=== PATIENT | female | born 1960 | race Two or more races ===

== ENCOUNTER 2025-05-05 14:25 | Inpatient (IN) | payer MEDICARE, MEDICAID ==
[~2025-05-05] VITALS: Ht 157.5 cm; Wt 70.2 kg
--- NOTE | 2025-05-05 15:12 | ED.PDOC ---
GI ASSESSMENT HPI Comments This is a 65 year old female with past medical history of hypertension, hyperlipidemia, diabetes, unknown liver problem, presenting to the ED with chief complaint of abdominal pain. Patient reports that she has been experiencing RUQ abdominal burning with associated dizziness, nausea, and vomiting since this morning, radiating to the left upper quadrant. Patient's daughter relays that the patient has been seeing her PCP for a possible liver problem she has recently, however is unsure what she was diagnosed with. She has not tried anything for. She states nothing makes her symptoms better or worse. Patient denies any diarrhea, chest pain, SOB, fever, chills, or hematemesis. 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 Hx Family History Family History: Reviewed,noncontributory to illness Social History Smoker: Non-Smoker Alcohol: Denies ETOH Use Drugs: Denies Drug Use Lives In: Home Constitutional: denies: chills, diaphoresis, fatigue, fever, malaise, sweats, weakness, others EENTM: denies: blurred vision, double vision, ear bleeding, ear discharge, ear drainage, ear pain, ear ringing, eye pain, eye redness, hearing loss, mouth pain, mouth swelling, nasal discharge, nose bleeding, nose congestion, nose pain, photophobia, tearing, throat pain, throat swelling, voice changes, others Respiratory: denies: cough, hemoptysis, orthopnea, SOB at rest, shortness of breath, SOB with excertion, stridor, wheezing, others Cardiovascular: denies: chest pain, dizzy spells, diaphoresis, Dyspnea on exertion, edema, irregular heart beat, left arm pain, lightheadedness, palpitations, PND, syncope, others Gastrointestinal: reports: abdominal pain, nausea, vomiting; denies: abdomen distended, blood streaked bowels, constipated, diarrhea, dysphagia, difficulty swallowing, hematemesis, melena, poor appetite, poor fluid intake, rectal bleeding, rectal pain, others Genitourinary: denies: abnormal vagina bleeding, burning, dyspareunia, dysuria, flank pain, frequency, hematuria, incontinence, pain, , vagina discharge, urgency, others Neurological: reports: dizziness; denies: fainting, headache, left sided numbness, left sided weakness, numbness, paresthesia, pre-existing deficit, right sided numbness, right sided weakness, seizure, speech problems, tingling, tremors, weakness, others Musculoskeletal: denies: back pain, gout, joint pain, joint swelling, muscle pain, muscle stiffness, neck pain, others Integumetry: denies: bruises, change in color, change in hair/nails, dryness, laceration, lesions, lumps, rash, wounds, others Allergic/Immunocompromised: denies: Difficulty Healing, Frequent Infections, Hives, Itching, others Hematologic/Lymphatic: denies: anemia, blood clots, easy bleeding, easy bruising, swollen glands, others Endocrine: denies: excessive hunger, excessive sweating, excessive thirst, excessive urination, flushing, intolerance to cold, intolerance to heat, unexplained weight gain, unexplained weight loss, others Psychiatric: denies: anxiety, bipolar disorder, depression, hopeless, panic disorder, schizophrenia, sleepless, suicidal, others All Other Systems: Reviewed and Negative Physical Exam General Appearance: No Apparent Distress, Normal HEENT: Normal ENT Inspection, Pharynx Normal, TMs Normal Neck: Full Range of Motion, Non-Tender, Normal, Normal Inspection Respiratory: Chest Non-Tender, Lungs Clear, No Accessory Muscle Use, No Respiratory Distress, Normal Breath Sounds Cardiovascular: No Edema, No JVD, No Murmur, No Gallop, Normal Peripheral Pulses, Regular Rate/Rhythm Breast Exam: Deferred Gastrointestinal: No Organomegaly, Non Tender, No Pulsatile Mass, Normal Bowel Sounds, Soft Genitalia: Deferred Pelvic: Deferred Rectal: Deferred Extremities: No calf tenderness, Normal capillary refill, Normal inspection, Normal range of motion, Non-tender, No pedal edema Musculoskeletal : Apperance: Normal Neurologic: Alert, produce runner II-XII nml as Tested, No Motor Deficits, Normal Affect, Normal Mood, No Sensory Deficits Cerebellar Function: Normal Reflexes: Normal Skin: Dry, Normal Color, Warm Lymphatic: No Adenopathy Was a procedure done? Was a procedure done?: No GI differential Dx Differential Diagnosis: Angina/HI, Cholangitis, Cholecystitis, Constipation, Gastritis/PUD, Gastroenteritis, Hepatitis, Pancreatitis, UTI, Dehydration, Electrolyte Imbalance, Food Poisoning, Viral, Renal Failure, Stress Ulcer X-Ray, Labs, Meds, VS Vital Signs Date Time Temp Pulse Resp B/P (MAP) Pulse Ox O2 Delivery O2 Flow Rate FiO2 05/05/25 17:25 56 22 99 Room Air* 0 21 05/05/25 16:54 97.8 47 16 101/51 (68) 98 97.8 05/05/25 16:05 98.2 60 17 103/54 (70) 99 98.2 05/05/25 16:05 60 17 99 Room Air 05/05/25 14:33 54 05/05/25 14:28 97.8 59 18 110/60 98 97.8 Lab Test 05/05/25 18:01 05/05/25 15:57 05/05/25 15:00 05/05/25 14:43 Range/Units Prothrombin Time 11.6 9.3-11.8 sec Prothrombin Time INR 1.11 0.9-1.15 Activated Partial Thromboplast Time 27.5 24.5-34.5 SEC Troponin I High Sensitivity 3 L < 3 L 3 L </=34 ng/L White Blood Count 7.1 4.4-10.8 10^3/uL Red Blood Count 4.39 4.0-5.20 10^6/uL Hemoglobin 13.1 12.2-16.2 g/dL Hematocrit 39.4 36.0-46.0 % Mean Corpuscular Volume 89.9 80.0-100.0 fL Mean Corpuscular Hemoglobin 29.8 28.0-32.0 pg Mean Corpuscular Hemoglobin Concent 33.2 32.0-36.0 g/dL Red Cell Distribution Width 14.5 H 11.8-14.3 % Platelet Count 106 L 140-450 10^3/uL Mean Platelet Volume 10.1 6.9-10.8 fL Neutrophils (%) (Auto) 68.9 37.0-80.0 % Lymphocytes (%) (Auto) 21.4 10.0-50.0 % Monocytes (%) (Auto) 6.0 0.0-12.0 % Eosinophils (%) (Auto) 3.1 0.0-7.0 % Basophils (%) (Auto) 0.6 0.0-2.0 % Neutrophils # (Auto) 4.9 1.6-8.6 10 ^3/uL Lymphocytes # (Auto) 1.5 0.4-5.4 10 ^3/uL Monocytes # (Auto) 0.4 0-1.3 10 ^3/uL Eosinophils # (Auto) 0.2 0-0.8 10 ^3/uL Basophils # (Auto) 0 0-0.2 10 ^3/uL Nucleated Red Blood Cells 0.2 % Platelet Estimate Decreased Clumped Platelets Few Sodium Level 140 136-145 mmol/L Potassium Level 4.0 3.5-5.1 mmol/L Chloride Level 107 98-107 mmol/L Carbon Dioxide Level 22 20-31 mmol/L Anion Gap 11 5-15 Blood Urea Nitrogen 22 9-23 mg/dL Creatinine 1.01 0.550-1.02 mg/dL Glomerular Filtration Rate Calc 61 >90 mL/min BUN/Creatinine Ratio 21.8 H 10.0-20.0 Serum Glucose 206 H 74-106 mg/dL Calcium Level 9.3 8.7-10.4 mg/dL Total Bilirubin 0.9 0.2-1.0 mg/dL Aspartate Amino Transferase (AST) 101 H 13-40 U/L Alanine Aminotransferase (ALT) 78 H 7-40 U/L Alkaline Phosphatase 141 H 46-116 U/L B-Type Natriuretic Peptide 74.15 0-100 pg/mL Total Protein 7.0 5.7-8.2 g/dL Albumin 4.2 3.2-4.8 g/dL Triglycerides Level 90 < 150 mg/dL Cholesterol Level 151 < 200 mg/dL LDL Cholesterol 57 < 100 mg/dL HDL Cholesterol 74 H 40-59 mg/dL Lipase > 3500 H 12-53 U/L POC Glucose 192 H 70-106 mg/dl Current Medications Medications (Trade) Dose Ordered Sig/Randy Route Start Time Stop Time Status Last Admin Ondansetron HCl (Zofran Po) 4 mg ONCE ONCE PO 05/05/25 15:00 05/05/25 15:01 DC 05/05/25 16:20 Sodium Chloride 1,000 ml @ 1,000 mls/hr Q1H ONCE IV 05/05/25 17:30 05/05/25 18:29 DC 05/05/25 17:24 X-Ray, Labs, Meds, VS Comment Patient presenting with right upper quadrant abdominal pain, with recently diagnosed liver problems. Vital signs stable exam notable for right upper quadrant tenderness. Lab work (CBC, BMP) to evaluate for evidence of severe anemia, electrolyte abnormality including hypokalemia, hyperkalemia, hypernatremia, hyponatremia, hyperglycemia, hypoglycemia, etc. EKG and troponin to evaluate for evidence of arrhythmia, ACS, AMI Right upper quadrant ultrasound to evaluate for biliary colic or cholecystitis Patient declining analgesia at this time Antiemetics Re-evaluation Social determinant surveillance affecting care: Social determinants of health that will affect the patient's care: Poor health literacy (additional time provided an explanation) Poor access to outpatient care/followup (provided outpatient resources) Time of 1ST Reevaluation: 16:09 Reevaluation 1ST: Unchanged Patient Education/Counseling: Diagnosis, Treatment Family Education/Counseling: Diagnosis, Treatment SEPSIS Sepsis Screen Date sepsis recognized/suspect: May 05, 2025 Time Sepsis recognized/suspect: 1428 Recent Procedure: No On Antibiotic Therapy: No Respiratory Rate >20: No Heart Rate >90: No Temp<36 C (96.8 F) or >38.3 C: No SBP <90 or MAP <65 mmHG: No New Acute Mental Status Change: No Is the patient on CPAP, BIPAP,: No Physician Orders Electrocardigram (05/05/25 14:47) Abdomen Limited (05/05/25 14:56) Vital Signs Date Time Temp Pulse Resp B/P (MAP) Pulse Ox O2 Delivery O2 Flow Rate FiO2 05/05/25 17:25 56 22 99 Room Air* 0 21 05/05/25 16:54 97.8 47 16 101/51 (68) 98 97.8 05/05/25 16:05 98.2 60 17 103/54 (70) 99 98.2 05/05/25 16:05 60 17 99 Room Air 05/05/25 14:33 54 05/05/25 14:28 97.8 59 18 110/60 98 97.8 Laboratory Tests Test 05/05/25 15:00 White Blood Count 7.1 10^3/uL (4.4-10.8) Medications Medications Dose Ordered Sig/Randy Route Start Time Stop Time Status Last Admin Dose Admin Ondansetron HCl 4 mg ONCE ONCE PO 05/05/25 15:00 05/05/25 15:01 DC 05/05/25 16:20 Sodium Chloride 1,000 ml @ 1,000 mls/hr Q1H ONCE IV 05/05/25 17:30 05/05/25 18:29 DC 05/05/25 17:24 Departure 1 Departure Time of Disposition: 16:38 (On reassessment, patient found to have a lipase greater than 3500, consistent with acute pancreatitis. Repeat abdominal exam with tenderness in the right upper quadrant. Ultrasound negative for cholecystitis. Will admit for acute pancreatitis.) Impression: Primary Impression: Acute abdominal pain in right upper quadrant Additional Impressions: Acute pancreatitis Acute nausea with nonbilious vomiting Disposition: ADMITTED INPATIENT Admit to: Med Surg Condition: Guarded Critical Care Note Critical Care Time?: No Stability Stability form required: No Heart Score Heart Score: Heart Score Response (Comments) Value History N/A 0 EKG N/A 0 Age N/A 0 Risk Factors N/A 0 Troponin N/A 0 Total 0 I personally scribed for ALISHA ROBLES MD ([email or web address]) on 05/05/25 at 15:12. Electronically submitted by Jefe Boyd ([email or web address]). ALISHA ROBLES MD May 05, 2025 15:12
--- NOTE | 2025-05-05 15:41 | DVH ---
Procedure: US ABDOMEN LIMITED Study Date and Requested Time: 05/05/2025 03:10 PM History: RUQ pain Comparison: None Technique: Multiple high resolution rivas-scale images obtained of the right upper quadrant of the abdomen with color Doppler for evaluation of blood flow and vascularity as indicated. Findings: Liver measures 15 cm in length, with heterogeneous echotexture and normal contours. No evidence of focal hepatic lesions, intrahepatic or extrahepatic ductal dilatation. Common bile duct measures 6.7 mm in diameter. Gallbladder appears prominent. Otherwise, unremarkable with no evidence of abnormal wall thickening, gallstones, biliary sludge, or pericholecystic fluid. Negative sonographic Corrales's sign. Pancreas is obscured by bowel gas. Right kidney measures 6 cm in length, with limited evaluation due to overlying bowel gas. No evidence of hydronephrosis, calculi, cystic or solid renal lesions. Partially visualized inferior vena cava unremarkable. Impression: Limited evaluation due to overlying bowel gas. Atrophic right kidney with the right kidney poorly visualized due to overlying bowel gas. The common bile duct is at upper limit of normal at 6.7 mm
[2025-05-05 15:53] LABS: Hematocrit 39.4 % (36.0-46.0); Hemoglobin 13.1 g/dL (12.2-16.2); Mean Corpuscular Hemoglobin 29.8 pg (28.0-32.0); Mean Corpuscular Volume 89.9 fL (80.0-100.0); Nucleated Red Blood Cells % 0.2 %
[2025-05-05 16:12] LABS: Albumin 4.2 g/dL (3.2-4.8); Anion Gap 11 (5-15); BUN/Creatinine Ratio 21.8 (10.0-20.0); Bilirubin, Total 0.9 mg/dL (0.2-1.0); Blood Urea Nitrogen 22 mg/dL (9-23); Calcium 9.3 mg/dL (8.7-10.4); Carbon Dioxide 22 mmol/L (20-31); Chloride 107 mmol/L (98-107); Potassium 4.0 mmol/L (3.5-5.1); Sodium 140 mmol/L (136-145); Total Protein 7.0 g/dL (5.7-8.2)
[2025-05-05 16:15] LABS: Alanine Aminotransferase 78 U/L (7-40); Alkaline Phosphatase 141 U/L (46-116); Glucose 206 mg/dL (74-106)
[2025-05-05 16:20] LABS: Lipase > 3500 U/L (12-53)
[2025-05-05] MEDS: ONDANSETRON ODT 4 MG TAB PO ONE (16:20)
[2025-05-05] MEDS: SODIUM CHLORIDE 0.9% 1,000 ML IV ONE (17:24)
[2025-05-05 17:25] VITALS: PULSE 56; RESP 22; O2SAT 99
[2025-05-05] MEDS ORDERED: DEXTROSE (50%) 50ML SYRG IV PRN (19:30)
[2025-05-05] MEDS ORDERED: MORPHINE SULFATE INJ 2 MG/ml SYRG IV PRN (19:30)
--- NOTE | 2025-05-05 19:40 | DVHHPRES ---
History of Present Illness Resident Creating Document: [employer] RESIDENT History of Present Illness Patient is a 65-year-old female who presented to the hospital with a chief complaint of right upper quadrant pain and intractable nausea vomiting since the morning today. Patient was apparently well until yesterday and had regular diet and in the morning started to have right upper quadrant pain associated with intractable nausea vomiting, multiple episodes of vomiting without any hematemesis. Pain pain has been constant with intermittent episodes of sharp pain, no positional variation, does not get worse or improved with the food and reports that she has had similar pain in the past in the last 2-3 months. Patient also reports of weight loss about 40 lb in the last 6 months. She was reportedly seen by her PCP for regular labs and was seen to have elevated liver function tests following which the dose of atorvastatin was cut to half. Patient reported to have regular bowel movements and does not report any constipation. She does report burning pain on urination since the last 3 days. Medical history: Type 2 diabetes mellitus [id number], hypertension, hyperlipidemia, ? Peripheral artery disease Surgical history: Umbilical hernia repair, tubal ligation Social history: Patient lives with the family and denies smoking, alcohol, drug use Home medications: Aspirin 81, Plavix 75, lisinopril 40 mg daily, amlodipine 10 mg daily, Janumet 100-1000 daily, Jardiance 10 mg daily, atorvastatin 20 mg Review of Systems Review of Systems Reports of nausea, no appetite, does not feel like eating Has epigastric pain which radiates down to her umbilicus Reports of chills No fever, headache, shortness of breath, chest pain Allergies: Coded Allergies: NO KNOWN ALLERGIES (Unverified , 05/05/25) Medications Current Medications Medications Dose Ordered Sig/Randy Route Start Time Stop Time Status Last Admin Dose Admin Ondansetron HCl 4 mg Q6HPRN PRN IV 05/05/25 19:30 Diagnostic Test (Pha) 1 strip Q6HR 05/06/25 00:00 Insulin Human Regular Q6HR SC 05/06/25 00:00 Dextrose 50 ml UD PRN IV 05/05/25 19:30 Aspirin 81 mg DAILY PO 05/06/25 10:00 Morphine Sulfate 2 mg Q6HPRN PRN IV 05/05/25 19:30 Exam Vital Signs Vital Signs Date Time Temp Pulse Resp B/P (MAP) Pulse Ox O2 Delivery O2 Flow Rate FiO2 05/05/25 17:25 56 22 99 Room Air* 0 21 05/05/25 16:54 97.8 101/51 (68) 97.8 Exam Skin - Patients skin is warm and dry. HEENT - normocephalic, atraumatic, moist mucous membranes, no scleral icterus, no conjunctival Neck - full ROM, no LAD, no JVD Pulmonary - B/L clear breath sounds without any wheezing or rales cardiovascular - regular S1,S2 heard, no added sounds, no murmurs heard. GI - soft abdomen with tenderness to palpation in the right upper quadrant, epigastrium, umbilicus. Corrales sign positive on palpation, no hepatospleenomegaly. Bowel sounds normoactive Neurological - Patient is A/O X4 . Bilateral upper extremity strength 5/5, bilateral lower extremity strength 5/5, no facial droop, normal speech, no tremor, no sensory deficiets. Labs/Xrays Labs Test 05/05/25 18:01 05/05/25 15:00 05/05/25 14:43 Range/Units Troponin I High Sensitivity 3 L </=34 ng/L White Blood Count 7.1 4.4-10.8 10^3/uL Red Blood Count 4.39 4.0-5.20 10^6/uL Hemoglobin 13.1 12.2-16.2 g/dL Hematocrit 39.4 36.0-46.0 % Mean Corpuscular Volume 89.9 80.0-100.0 fL Mean Corpuscular Hemoglobin 29.8 28.0-32.0 pg Mean Corpuscular Hemoglobin Concent 33.2 32.0-36.0 g/dL Red Cell Distribution Width 14.5 H 11.8-14.3 % Platelet Count 106 L 140-450 10^3/uL Mean Platelet Volume 10.1 6.9-10.8 fL Neutrophils (%) (Auto) 68.9 37.0-80.0 % Lymphocytes (%) (Auto) 21.4 10.0-50.0 % Monocytes (%) (Auto) 6.0 0.0-12.0 % Eosinophils (%) (Auto) 3.1 0.0-7.0 % Basophils (%) (Auto) 0.6 0.0-2.0 % Neutrophils # (Auto) 4.9 1.6-8.6 10 ^3/uL Lymphocytes # (Auto) 1.5 0.4-5.4 10 ^3/uL Monocytes # (Auto) 0.4 0-1.3 10 ^3/uL Eosinophils # (Auto) 0.2 0-0.8 10 ^3/uL Basophils # (Auto) 0 0-0.2 10 ^3/uL Nucleated Red Blood Cells 0.2 % Platelet Estimate Decreased Clumped Platelets Few Sodium Level 140 136-145 mmol/L Potassium Level 4.0 3.5-5.1 mmol/L Chloride Level 107 98-107 mmol/L Carbon Dioxide Level 22 20-31 mmol/L Anion Gap 11 5-15 Blood Urea Nitrogen 22 9-23 mg/dL Creatinine 1.01 0.550-1.02 mg/dL Glomerular Filtration Rate Calc 61 >90 mL/min BUN/Creatinine Ratio 21.8 H 10.0-20.0 Serum Glucose 206 H 74-106 mg/dL Calcium Level 9.3 8.7-10.4 mg/dL Total Bilirubin 0.9 0.2-1.0 mg/dL Aspartate Amino Transferase (AST) 101 H 13-40 U/L Alanine Aminotransferase (ALT) 78 H 7-40 U/L Alkaline Phosphatase 141 H 46-116 U/L B-Type Natriuretic Peptide 74.15 0-100 pg/mL Total Protein 7.0 5.7-8.2 g/dL Albumin 4.2 3.2-4.8 g/dL Lipase > 3500 H 12-53 U/L POC Glucose 192 H 70-106 mg/dl SEPSIS Sepsis Screen Date sepsis recognized/suspect: May 05, 2025 Time Sepsis recognized/suspect: 1428 Recent Procedure: No On Antibiotic Therapy: No Respiratory Rate >20: No Heart Rate >90: No Temp<36 C (96.8 F) or >38.3 C: No SBP <90 or MAP <65 mmHG: No New Acute Mental Status Change: No Is the patient on CPAP, BIPAP,: No Physician Orders Electrocardigram (05/05/25 14:47) Abdomen Limited (05/05/25 14:56) Admit (05/05/25 18:48) Oxygen By Nasal Cannula (05/05/25 18:48) Stat Ekg For Chest Pain (05/05/25 18:48) Notify Of Changes From Base (05/05/25 18:48) Ct Ab Pel With Iv Con Only (05/05/25 19:22) Ondansetron Hcl (Zofran) (05/05/25 19:30) Glucose Blood (Accu-Chek Comfort Curve T (05/06/25 00:00) Insulin R (Human) (Insulin R) (05/06/25 00:00) Dextrose 50% Syringe (05/05/25 19:30) Urinalysis (05/05/25 19:22) Lipid Panel (05/05/25 19:22) Aspirin Enteric Coated Tablet (Ecotrin E (05/06/25 10:00) Npo Except Ice Chips (05/05/25 19:22) Npo (Nothing By Mouth) Diet (05/05/25 Breakfast) Morphine Sulfate Injection (05/05/25 19:30) Lactated Ringer's (05/05/25 19:30) PTPTT (05/05/25 19:22) Vital Signs Date Time Temp Pulse Resp B/P (MAP) Pulse Ox O2 Delivery O2 Flow Rate FiO2 05/05/25 17:25 56 22 99 Room Air* 0 21 05/05/25 16:54 97.8 47 16 101/51 (68) 98 97.8 05/05/25 16:05 98.2 60 17 103/54 (70) 99 98.2 05/05/25 16:05 60 17 99 Room Air 05/05/25 14:33 54 05/05/25 14:28 97.8 59 18 110/60 98 97.8 Laboratory Tests Test 05/05/25 15:00 White Blood Count 7.1 10^3/uL (4.4-10.8) Medications Medications Dose Ordered Sig/Randy Route Start Time Stop Time Status Last Admin Dose Admin Ondansetron HCl 4 mg ONCE ONCE PO 05/05/25 15:00 05/05/25 15:01 DC 05/05/25 16:20 4 MG Sodium Chloride 1,000 ml @ 1,000 mls/hr Q1H ONCE IV 05/05/25 17:30 05/05/25 18:29 DC 05/05/25 17:24 1,000 MLS/HR Assessment/Plan Assessment/Plan Acute intractable abdominal pain Probable acute pancreatitis likely gallstone induced r/o choledocholithiasis r/o pancreatic mass [id number] type 2 diabetes mellitus with hyperglycemia Transaminitis Plan - CT abdomen pelvis with IV contrast pending - right upper quadrant ultrasound showed prominent gallbladder, liver with heterogeneous echotexture, CBD measuring 6.7 mm which is upper limit of normal - IV fluids - IV pain medications - NPO except medications - insulin sliding scale Goals of care discussed with the patient and her daughter at bedside for over 19 minutes. Full code Time spent: 38 minutes Plan discussed with Dr. Kwong Plan discussed with: Patient, Daughter, Other (RN) My Orders Orders - [facility] Procedure Category Date Status Time Admit ADMIT 05/05/25 Transmitted 18:48 Oxygen By Nasal RT 05/05/25 Transmitted Cannula 18:48 Stat Ekg For Chest SHI 05/05/25 In Process Pain 18:48 Notify Md Of Changes SHI 05/05/25 In Process From Base 18:48 Ct Ab Pel With Iv Con CT 05/05/25 Logged Only 19:22 Ondansetron Hcl PHA 05/05/25 Logged (Zofran) 19:30 Glucose Blood PHA 05/06/25 Logged (Accu-Chek Comfort 00:00 Insulin R (Human) PHA 05/06/25 Logged (Insulin R) 00:00 Dextrose 50% Syringe PHA 05/05/25 Logged 19:30 Urinalysis LAB 05/05/25 Logged 19:22 Lipid Panel LAB 05/05/25 In Process 19:22 Aspirin Enteric PHA 05/06/25 Logged Coated Tablet 10:00 Npo Except Ice Chips SHI 05/05/25 In Process 19:22 Npo (Nothing By DIET 05/05/25 Transmitted Mouth) Diet Breakfast Morphine Sulfate PHA 05/05/25 Logged Injection 19:30 Lactated Ringer's PHA 05/05/25 Logged 19:30 PTPTT LAB 05/05/25 In Process 19:22 Date of Service: May 05, 2025 Billing Provider: EVON KWONG MD Common Visit Codes: 87131-OILCYTS INP/OBS CARE (HIGH) Secondary Visit Codes: 95847-[id number] CARE PLAN 30 MINUTES [facility] May 05, 2025 19:40 EVON KWONG MD May 06, 2025 22:33
[2025-05-05 20:02] LABS: Triglycerides 90 mg/dL (< 150)
[2025-05-05 20:04] LABS: Cholesterol 151 mg/dL (< 200)
[2025-05-05 20:04] LABS: INR 1.11 (0.9-1.15); Partial Thromboplastin Time 27.5 SEC (24.5-34.5); Prothrombin Time 11.6 sec (9.3-11.8)
[2025-05-05 20:05] LABS: HDL Cholesterol 74 mg/dL (40-59)
[2025-05-05] MEDS: IOHEXOL 300 MG/ML 100ML BOTTLE IJ ONE (21:43)
--- NOTE | 2025-05-05 21:56 | DVH ---
Exam: CT CT AB PEL WITH IV CON ONLY History: RUQ epig pain, intracN/V, leticia.lipase, h/o wt loss, CBD 6.7cm Comparison Study: None TECHNIQUE: Multidetector CT of the abdomen pelvis with IV contrast. Axial, coronal and sagittal multiplanar reformats were obtained from the axial data set by the technologist. Radiation Dose Information: CT Dose: CTDI volume is 10.64 mGy. Dose-length product is 3.92 mGy*cm FINDINGS: Bibasilar atelectasis. Borderline cardiomegaly. Mild Hepatomegaly with lobulated appearance of the liver possible areas of scarring. Spleen, and adrenal glands are unremarkable. Homogeneous enhancement of the pancreas with significant peripancreatic edema. Mild distention of the gallbladder with cholecystic edema is most likely from the trace upper abdominal ascites. Kidneys, ureters and urinary bladder are unremarkable. Uterus and adnexa are unremarkable. Small hiatal hernia. Gastric wall thickening. Wall thickening of the duodenum. The remainder of the small bowel loops unremarkable. Appendix is unremarkable. Mild wall thickening of the ascending colon. Moderate amount of fecal material within the colon. Descending colon diverticulosis without diverticulitis. No evidence of intraperitoneal free air. Trace upper abdominal ascites No evidence of Aortic aneurysm or dissection. Moderate to heavy Atherosclerotic calcification of the aorta and bilateral iliacs. Hepatic hilar region prominent lymph nodes which may be reactive or neoplastic, measuring up to 1.4 cm. Small right with Small to moderate left-sided fat containing inguinal hernias. Minimal body wall edema. 2.2 x 5.6 by 11.2 cm lipoma within the left ventral upper thigh musculature. No evidence of acute osseous abnormalities. Irregularly shaped Lytic lesion of the left acetabular roof with corticated m argins. IMPRESSION: Findings consistent with acute edematous pancreatitis. There is associated Upper abdominal trace ascites. Lobulated appearance of the liver with possible areas of scarring. Hepatic protocol CT/MRI is recommended for further evaluation to exclude underlying mass. Prominent lymph nodes of the hepatic hilar region which may be reactive or neoplastic. Wall thickening of the stomach and duodenum which may be reactive with gastro duodenitis not excluded. Mild wall thickening of the ascending colon which may be due to inadequate distention/mild colitis. Moderate amount of fecal material within the colon. Descending colon diverticulosis without diverticulitis.
[2025-05-06] VITALS (9 sets, daily range): BP systolic 134–169; BP diastolic 62–72; PULSE 63–74; RESP 16–19; TEMP 96.8–99.5; O2SAT 94–97
[2025-05-06] MEDS: InsuLIN REG 1unit/0.01ml Soln (100units/ml) SC SCH
[2025-05-06] MEDS: ACCU-CHEK COMFORT CURVE STRIP VI SCH (00:06)
[2025-05-06] MEDS: LACTATED RINGER'S 1,000 ML IV ONE (00:06)
[2025-05-06] MEDS ORDERED: CLOP75TA70 PO (00:26)
[2025-05-06] MEDS ORDERED: ASPI1TAB20 PO (00:26)
[2025-05-06] MEDS ORDERED: ATOR20TA PO (00:26)
[2025-05-06] MEDS ORDERED: EMPA1TAB PO (00:26)
[2025-05-06] MEDS ORDERED: LISI40TA16 PO (00:27)
[2025-05-06] MEDS ORDERED: SITA50TA25 PO (00:27)
[2025-05-06] MEDS ORDERED: AMLO1TAB23 PO (00:27)
[2025-05-06] MEDS: hydrALAZINE HCL 20 MG/ML VL IV ONE (00:42)
[2025-05-06] MEDS: ONDANSETRON HCL 4 MG/2 ML VIAL IV PRN (03:15)
[2025-05-06] MEDS: KETOROLAC TROMETH 30 MG/ML 1ML VIAL IV ONE (03:15)
[2025-05-06 06:07] LABS: Mean Corpuscular Volume 88.9 fL (80.0-100.0); Nucleated Red Blood Cells % 0.1 %
[2025-05-06 06:11] LABS: Hematocrit 36.9 % (36.0-46.0); Hemoglobin 12.7 g/dL (12.2-16.2); Mean Corpuscular Hemoglobin 30.6 pg (28.0-32.0)
[2025-05-06 06:35] LABS: Albumin 3.7 g/dL (3.2-4.8); Alkaline Phosphatase 107 U/L (46-116); Anion Gap 13 (5-15); BUN/Creatinine Ratio 27.5 (10.0-20.0); Bilirubin, Total 0.9 mg/dL (0.2-1.0); Blood Urea Nitrogen 22 mg/dL (9-23); Calcium 8.8 mg/dL (8.7-10.4); Carbon Dioxide 22 mmol/L (20-31); Potassium 4.1 mmol/L (3.5-5.1); Sodium 143 mmol/L (136-145); Total Protein 6.4 g/dL (5.7-8.2)
[2025-05-06 06:45] LABS: Alanine Aminotransferase 60 U/L (7-40); Chloride 108 mmol/L (98-107); Glucose 120 mg/dL (74-106)
[2025-05-06] MEDS: ASPirin-EC 81 mg tab PO SCH (09:08)
[2025-05-06 12:09] LABS: Urine Protein, UAD Negative (Negative)
[2025-05-07 01:00] VITALS: BP 150/72; PULSE 76; RESP 19; TEMP 98.1; O2SAT 94
[2025-05-07 05:00] VITALS: BP 131/74; PULSE 83; RESP 17; TEMP 97.9; O2SAT 94
[2025-05-07 08:38] VITALS: BP 129/69; PULSE 77; RESP 15; TEMP 99.7; O2SAT 94
[2025-05-07 12:44] VITALS: BP 152/73; PULSE 69; RESP 17; TEMP 98.7; O2SAT 95
--- NOTE | 2025-05-07 13:19 | DVHPN2 ---
Reviewed: Care Plan, H&P, Labs, Medications, Previous Orders, Radiology Changes from previous H/P or p: No Changes General: Per HPI Objective Vitals Vital Signs Date Time Temp Pulse Resp B/P (MAP) Pulse Ox O2 Delivery O2 Flow Rate FiO2 05/07/25 12:44 98.7 69 17 152/73 (99) 95 98.7 05/07/25 08:10 Room Air* 0 21 Intake/Output Intake and Output 05/07/25 06:59 Intake Total 800 ml Balance 800 ml Intake Oral 800 ml # Voids 2 Medications Current Medications Medications Dose Ordered Sig/Randy Route Start Time Stop Time Status Last Admin Dose Admin Ondansetron HCl 4 mg Q6HPRN PRN IV 05/05/25 19:30 05/06/25 03:15 4 MG Diagnostic Test (Pha) 1 strip Q6HR 05/06/25 00:00 05/07/25 11:19 1 STRIP Insulin Human Regular Q6HR SC 05/06/25 00:00 Dextrose 50 ml UD PRN IV 05/05/25 19:30 Aspirin 81 mg DAILY PO 05/06/25 10:00 Morphine Sulfate 2 mg Q6HPRN PRN IV 05/05/25 19:30 Laboratory Results Laboratory Tests 05/06/25 04:50 Urinalysis Test 05/06/25 11:00 Urine Color Light-yellow (Yellow) Urine Clarity Clear (Clear) Urine pH 5.0 (5.0-9.0) Urine Specific [place] > 1.050 (1.001-1.035) Urine Protein Negative (Negative) Urine Ketones Trace (Negative) Urine Blood Negative /uL (Negative) Urine Nitrite Negative (Negative) Urine Bilirubin Negative (Negative) Urine Urobilinogen Normal mg/dL (Negative) Urine Leukocyte Esterase Negative /uL (Negative) Urine RBC <1 /hpf (0 - 4) Urine Microscopic WBC 1 /HPF (0-5) Urine Squamous Epithelial Cells Few /hpf (<5) Urine Bacteria None seen /hpf (None Seen) Urine Glucose 4+ mg/dL (Normal) H Assessment/Plan Assessment/Plan Patient is a 65-year-old female who presented to the hospital with a chief complaint of right upper quadrant pain and intractable nausea vomiting since the morning today. Patient was apparently well until yesterday and had regular diet and in the morning started to have right upper quadrant pain associated with intractable nausea vomiting, multiple episodes of vomiting without any hematemesis. Pain pain has been constant with intermittent episodes of sharp pain, no positional variation, does not get worse or improved with the food and reports that she has had similar pain in the past in the last 2-3 months. Patient also reports of weight loss about 40 lb in the last 6 months. She was reportedly seen by her PCP for regular labs and was seen to have elevated liver function tests following which the dose of atorvastatin was cut to half. Patient reported to have regular bowel movements and does not report any constipation. She does report burning pain on urination since the last 3 days. Medical history: Type 2 diabetes mellitus [id number], hypertension, hyperlipidemia, ? Peripheral artery disease Surgical history: Umbilical hernia repair, tubal ligation Social history: Patient lives with the family and denies smoking, alcohol, drug use Acute intractable abdominal pain Probable acute pancreatitis likely gallstone induced r/o choledocholithiasis r/o pancreatic mass [id number]-pjckcddak type 2 diabetes mellitus with hyperglycemia Transaminitis Plan - CT abdomen pelvis with IV contrast pending - right upper quadrant ultrasound showed prominent gallbladder, liver with heterogeneous echotexture, CBD measuring 6.7 mm which is upper limit of normal - IV fluids - IV pain medications - NPO except medications - insulin sliding scale Goals of care discussed with the patient and her daughter at bedside for over 19 minutes. Full code Time spent: [address] abd indicates: Findings consistent with acute edematous pancreatitis. There is associated Upper abdominal trace ascites. Lobulated appearance of the liver with possible areas of scarring. Hepatic protocol CT/MRI is recommended for further evaluation to exclude underlying mass. Prominent lymph nodes of the hepatic hilar region which may be reactive or neoplastic. Wall thickening of the stomach and duodenum which may be reactive with gastro duodenitis not excluded. Mild wall thickening of the ascending colon which may be due to inadequate distention/mild colitis. Moderate amount of fecal material within the colon. Descending colon diverticulosis without diverticulitis. Plan discussed with: Patient My Orders Orders - ROMI BORJA DO Procedure Category Date Status Time Mechanical Soft Diet DIET 05/06/25 Transmitted Dinner Date of Service: May 06, 2025 Billing Provider: ROMI BORJA DO Common Visit Codes: [id number] INP/OBS CARE(HIGH) ROMI BORJA DO May 07, 2025 13:19
--- NOTE | 2025-05-07 13:21 | DVHPN2 ---
Reviewed: Care Plan, H&P, Labs, Medications, Previous Orders, Radiology Changes from previous H/P or p: No Changes General: Per HPI Objective Vitals Vital Signs Date Time Temp Pulse Resp B/P (MAP) Pulse Ox O2 Delivery O2 Flow Rate FiO2 05/07/25 12:44 98.7 69 17 152/73 (99) 95 98.7 05/07/25 08:10 Room Air* 0 21 Intake/Output Intake and Output 05/07/25 06:59 Intake Total 800 ml Balance 800 ml Intake Oral 800 ml # Voids 2 Medications Current Medications Medications Dose Ordered Sig/Arndy Route Start Time Stop Time Status Last Admin Dose Admin Ondansetron HCl 4 mg Q6HPRN PRN IV 05/05/25 19:30 05/06/25 03:15 4 MG Diagnostic Test (Pha) 1 strip Q6HR 05/06/25 00:00 05/07/25 11:19 1 STRIP Insulin Human Regular Q6HR SC 05/06/25 00:00 Dextrose 50 ml UD PRN IV 05/05/25 19:30 Aspirin 81 mg DAILY PO 05/06/25 10:00 Morphine Sulfate 2 mg Q6HPRN PRN IV 05/05/25 19:30 Laboratory Results Laboratory Tests 05/06/25 04:50 Urinalysis Test 05/06/25 11:00 Urine Color Light-yellow (Yellow) Urine Clarity Clear (Clear) Urine pH 5.0 (5.0-9.0) Urine Specific [place] > 1.050 (1.001-1.035) Urine Protein Negative (Negative) Urine Ketones Trace (Negative) Urine Blood Negative /uL (Negative) Urine Nitrite Negative (Negative) Urine Bilirubin Negative (Negative) Urine Urobilinogen Normal mg/dL (Negative) Urine Leukocyte Esterase Negative /uL (Negative) Urine RBC <1 /hpf (0 - 4) Urine Microscopic WBC 1 /HPF (0-5) Urine Squamous Epithelial Cells Few /hpf (<5) Urine Bacteria None seen /hpf (None Seen) Urine Glucose 4+ mg/dL (Normal) H Assessment/Plan Assessment/Plan Patient is a 65-year-old female who presented to the hospital with a chief complaint of right upper quadrant pain and intractable nausea vomiting since the morning today. Patient was apparently well until yesterday and had regular diet and in the morning started to have right upper quadrant pain associated with intractable nausea vomiting, multiple episodes of vomiting without any hematemesis. Pain pain has been constant with intermittent episodes of sharp pain, no positional variation, does not get worse or improved with the food and reports that she has had similar pain in the past in the last 2-3 months. Patient also reports of weight loss about 40 lb in the last 6 months. She was reportedly seen by her PCP for regular labs and was seen to have elevated liver function tests following which the dose of atorvastatin was cut to half. Patient reported to have regular bowel movements and does not report any constipation. She does report burning pain on urination since the last 3 days. Medical history: Type 2 diabetes mellitus [id number], hypertension, hyperlipidemia, ? Peripheral artery disease Surgical history: Umbilical hernia repair, tubal ligation Social history: Patient lives with the family and denies smoking, alcohol, drug use Acute intractable abdominal pain Probable acute pancreatitis likely gallstone induced r/o choledocholithiasis r/o pancreatic mass [id number] type 2 diabetes mellitus with hyperglycemia Transaminitis Plan - CT abdomen pelvis with IV contrast pending - right upper quadrant ultrasound showed prominent gallbladder, liver with heterogeneous echotexture, CBD measuring 6.7 mm which is upper limit of normal - IV fluids - IV pain medications - NPO except medications - insulin sliding scale Goals of care discussed with the patient and her daughter at bedside for over 19 minutes. Full code Time spent: [address] abd indicates: Findings consistent with acute edematous pancreatitis. There is associated Upper abdominal trace ascites. Lobulated appearance of the liver with possible areas of scarring. Hepatic protocol CT/MRI is recommended for further evaluation to exclude underlying mass. Prominent lymph nodes of the hepatic hilar region which may be reactive or neoplastic. Wall thickening of the stomach and duodenum which may be reactive with gastro duodenitis not excluded. Mild wall thickening of the ascending colon which may be due to inadequate distention/mild colitis. Moderate amount of fecal material within the colon. Descending colon diverticulosis without diverticulitis. improving, possible discharge in 24 hours Plan discussed with: Patient My Orders Orders - ROMI BORJA DO Procedure Category Date Status Time Mechanical Soft Diet DIET 05/06/25 Transmitted Dinner Date of Service: May 07, 2025 Billing Provider: ROMI BORJA DO Common Visit Codes: [id number] INP/OBS CARE(HIGH) ROMI BORJA DO May 07, 2025 13:21
[2025-05-07 17:10] VITALS: BP 166/80; PULSE 73; RESP 20; TEMP 98.8; O2SAT 97
--- NOTE | 2025-05-07 20:18 | ECG ---
[facility] Test Date: 2025-05-05 Test Time: 14:33:37 Pat Name: JUAN HERNADEZ Department: ED Room: [facility] Gender: F Gem Expert: RASHID : 1960 Requested By: ALISHA ROBLES Order Number: [id number] Reading MD: Augie Stern Measurements Intervals [place] Rate: 54 P: 61 ID: [id number] QRS: 92 QRSD: 89 T: -1 QT: 434 QTc: 412 Interpretive Statements Sinus rhythm Right axis deviation Low voltage, precordial leads Electronically Signed On 05-09-2025 14:58:35 PST by Augie Stern Please click the below link to view image of tracing.
[2025-05-07 21:00] VITALS: BP_SYST 139; BP_SYST 153; BP_DIAS 58; BP_DIAS 89; PULSE 68; PULSE 77; RESP 18; TEMP 98.5; TEMP 98.6; O2SAT 96; O2SAT 99
[2025-05-08 01:00] VITALS: BP 153/83; PULSE 79; RESP 17; TEMP 99.5; O2SAT 95
[2025-05-08 05:00] VITALS: BP 131/82; PULSE 79; RESP 17; TEMP 98.8; O2SAT 94
[2025-05-08 08:12] VITALS: BP 128/66; PULSE 73; TEMP 37.1
[2025-05-08 08:41] VITALS: BP 128/66; PULSE 73; RESP 17; TEMP 98; O2SAT 95
[2025-05-08] MEDS ORDERED: AUG875T PO (11:14)
[2025-05-08 11:51] LABS: Hepatitis B Surface Antigen Negative (Negative)
[2025-05-08 12:17] LABS: Hepatitis C Antibody Negative (Negative)
--- NOTE | 2025-05-12 22:53 | DVHDS2 ---
Discharge Summary Date of Admission May 05, 2025 at 18:48 Date of Discharge: May 08, 2025 Labs/Diagnostic Data: Laboratory Results Test 05/08/25 11:28 05/06/25 11:00 05/06/25 04:50 05/05/25 18:01 POC Glucose 149 mg/dl (70-106) Urine Color Light-yellow (Yellow) Urine Clarity Clear (Clear) Urine pH 5.0 (5.0-9.0) Urine Specific [place] > 1.050 (1.001-1.035) Urine Protein Negative (Negative) Urine Ketones Trace (Negative) Urine Blood Negative /uL (Negative) Urine Nitrite Negative (Negative) Urine Bilirubin Negative (Negative) Urine Urobilinogen Normal mg/dL (Negative) Urine Leukocyte Esterase Negative /uL (Negative) Urine RBC <1 /hpf (0 - 4) Urine Microscopic WBC 1 /HPF (0-5) Urine Squamous Epithelial Cells Few /hpf (<5) Urine Bacteria None seen /hpf (None Seen) Urine Glucose 4+ mg/dL (Normal) White Blood Count 7.9 10^3/uL (4.4-10.8) Red Blood Count 4.15 10^6/uL (4.0-5.20) Hemoglobin 12.7 g/dL (12.2-16.2) Hematocrit 36.9 % (36.0-46.0) Mean Corpuscular Volume 88.9 fL (80.0-100.0) Mean Corpuscular Hemoglobin 30.6 pg (28.0-32.0) Mean Corpuscular Hemoglobin Concent 34.4 g/dL (32.0-36.0) Red Cell Distribution Width 14.3 % (11.8-14.3) Platelet Count 48 10^3/uL (140-450) Mean Platelet Volume 9.4 fL (6.9-10.8) Neutrophils (%) (Auto) 82.1 % (37.0-80.0) Lymphocytes (%) (Auto) 12.1 % (10.0-50.0) Monocytes (%) (Auto) 5.6 % (0.0-12.0) Eosinophils (%) (Auto) 0.0 % (0.0-7.0) Basophils (%) (Auto) 0.2 % (0.0-2.0) Neutrophils # (Auto) 6.4 10 ^3/uL (1.6-8.6) Lymphocytes # (Auto) 1.0 10 ^3/uL (0.4-5.4) Monocytes # (Auto) 0.4 10 ^3/uL (0-1.3) Eosinophils # (Auto) 0 10 ^3/uL (0-0.8) Basophils # (Auto) 0 10 ^3/uL (0-0.2) Nucleated Red Blood Cells 0.1 % Platelet Estimate Decreased Clumped Platelets Few Sodium Level 143 mmol/L (136-145) Potassium Level 4.1 mmol/L (3.5-5.1) Chloride Level 108 mmol/L (98-107) Carbon Dioxide Level 22 mmol/L (20-31) Anion Gap 13 (5-15) Blood Urea Nitrogen 22 mg/dL (9-23) Creatinine 0.80 mg/dL (0.550-1.02) Glomerular Filtration Rate Calc 81 mL/min (>90) BUN/Creatinine Ratio 27.5 (10.0-20.0) Serum Glucose 120 mg/dL (74-106) Calcium Level 8.8 mg/dL (8.7-10.4) Total Bilirubin 0.9 mg/dL (0.2-1.0) Aspartate Amino Transferase (AST) 59 U/L (13-40) Alanine Aminotransferase (ALT) 60 U/L (7-40) Alkaline Phosphatase 107 U/L (46-116) Total Protein 6.4 g/dL (5.7-8.2) Albumin 3.7 g/dL (3.2-4.8) Tumor Marker Alpha Fetoprotein 2.6 ng/mL (0.0-9.2) CA 19-9 Antigen 35 U/mL (0-35) Thyroid Stimulating Hormone (TSH) 0.89 uIU/mL (0.55-4.78) Hepatitis A IgM Antibody Negative Hepatitis B Surface Antigen Negative (Negative) Hepatitis B Core IgM Antibody Negative (Negative) Hepatitis C Antibody Negative (Negative) Prothrombin Time 11.6 sec (9.3-11.8) Prothrombin Time INR 1.11 (0.9-1.15) Activated Partial Thromboplast Time 27.5 SEC (24.5-34.5) Troponin I High Sensitivity 3 ng/L (</=34) Test 05/05/25 15:00 B-Type Natriuretic Peptide 74.15 pg/mL (0-100) Triglycerides Level 90 mg/dL (< 150) Cholesterol Level 151 mg/dL (< 200) LDL Cholesterol 57 mg/dL (< 100) HDL Cholesterol 74 mg/dL (40-59) Lipase > 3500 U/L (12-53) Other Laboratory Tests 05/06/25 04:50 Brief Hx & Hospital Course: Patient is a 65-year-old female who presented to the hospital with a chief complaint of right upper quadrant pain and intractable nausea vomiting since the morning today. Patient was apparently well until yesterday and had regular diet and in the morning started to have right upper quadrant pain associated with intractable nausea vomiting, multiple episodes of vomiting without any hematemesis. Pain pain has been constant with intermittent episodes of sharp pain, no positional variation, does not get worse or improved with the food and reports that she has had similar pain in the past in the last 2-3 months. Patient also reports of weight loss about 40 lb in the last 6 months. She was reportedly seen by her PCP for regular labs and was seen to have elevated liver function tests following which the dose of atorvastatin was cut to half. Patient reported to have regular bowel movements and does not report any constipation. She does report burning pain on urination since the last 3 days. Medical history: Type 2 diabetes mellitus [id number], hypertension, hyperlipidemia, ? Peripheral artery disease Surgical history: Umbilical hernia repair, tubal ligation Social history: Patient lives with the family and denies smoking, alcohol, drug use Acute intractable abdominal pain Probable acute pancreatitis likely gallstone induced r/o choledocholithiasis r/o pancreatic mass [id number]-itnaervma type 2 diabetes mellitus with hyperglycemia Transaminitis Plan - CT abdomen pelvis with IV contrast pending - right upper quadrant ultrasound showed prominent gallbladder, liver with heterogeneous echotexture, CBD measuring 6.7 mm which is upper limit of normal - IV fluids - IV pain medications - NPO except medications - insulin sliding scale Goals of care discussed with the patient and her daughter at bedside for over 19 minutes. Full code Time spent: [address] abd indicates: Findings consistent with acute edematous pancreatitis. There is associated Upper abdominal trace ascites. Lobulated appearance of the liver with possible areas of scarring. Hepatic protocol CT/MRI is recommended for further evaluation to exclude underlying mass. Prominent lymph nodes of the hepatic hilar region which may be reactive or neoplastic. Wall thickening of the stomach and duodenum which may be reactive with gastro duodenitis not excluded. Mild wall thickening of the ascending colon which may be due to inadequate distention/mild colitis. Moderate amount of fecal material within the colon. Descending colon diverticulosis without diverticulitis. improving, possible discharge in 24 hours Condition at Discharge: Fair Final Diagnosis/Problems List pancreatitis Discharge Disposition: Home Discharge Instruct/Medications Diet: Cardiac 2g Na,low cholest Activity: No Restrictions, As Tolerated Scheduled Amlodipine Besylate (Amlodipine Besylate), 10 MG PO DAILY, (Reported) Amoxicillin & Pot Clavulanate (Augmentin Tablet), 875 MG PO BID Clopidogrel Bisulfate (Clopidogrel), 75 MG PO DAILY, (Reported) Lisinopril (Lisinopril), 40 MG PO DAILY, (Reported) Miscellaneous Medications Aspirin (Aspir-81), 81 MG PO, (Reported) Atorvastatin Calcium (Lipitor), 20 MG PO, (Reported) Empagliflozin (Jardiance), 10 MG PO, (Reported) Sitagliptin-Metformin Hcl (Janumet Xr), 1 TAB PO, (Reported) Discharge Statement: "Patient was advised to return to the ER or call 911 if any headaches, dizziness, shortness of breath, chest pain, abdominal pain, bleeding, fevers, or worsening of medical condition. Patient was counseled about treatment plan, medications, possible side effects, patientverbalized understanding. All questions were answered to the best of my ability. This discharge took greater then 30 minutes in planning, reviewing documentation, counseling the patient, and discussing with other team members." ASSESSMENT ASSESSMENT Assessment pancreatitis Date of Service: May 08, 2025 Billing Provider: ROMI BORJA DO Common Visit Codes: [id number] DISCH DAY >30min ROMI BORJA DO May 12, 2025 22:53
== END 2025-05-08 12:10 | disposition home or self-care (01) | DRG 440 ==
LOC: ER 14:25 → OVERFLOW 18:48 → WEST WING 22:50
PROVIDERS: ADMIT Hospitalist; ATTEND Hospitalist
DX: K85.10 Biliary acute pancreatitis without necrosis or infection (principal); K80.50 Calculus of bile duct without cholangitis or cholecystitis without obstruction; E11.51 Type 2 diabetes mellitus with diabetic peripheral angiopathy without gangrene; I10 Essential (primary) hypertension; E11.65 Type 2 diabetes mellitus with hyperglycemia; R74.01 Elevation of levels of liver transaminase levels; Z98.51 Tubal ligation status; Z79.4 Long term (current) use of insulin
CPT/HCPCS: 36415; 74177; 76705; 80053; 80061; 80074; 81001; 82105; 82378; 82962; 83690; 83880; 84443; 84484; 85025; 85610; 85730; 86301; 93005; G0378; J1885; J2405; Q0162